=== PATIENT | male | born 1980 | race Caucasian/White ===

== ENCOUNTER 2017-06-28 13:52 | Emergency (ER) | payer MEDICAID ==
[~2017-06-28] VITALS: Ht 180.3 cm; Wt 93.0 kg
[~2017-06-28 13:52] MED LIST: CYCL-1 PO; DIPH25CA83 PO; EPIN0.3P17 SQ; EPIN0.3P3 IM; FAMO40TA73 PO; NO HOME MEDS; POTA20TA19 PO
[2017-06-28 15:03] LABS: BASOPHILS # (AUTO) 0.1 X10'3 (0-0.2); BASOPHILS % (AUTO) 1.1 % (0-1); EOSINOPHILS # (AUTO) 0.4 X10'3 (0-0.9); EOSINOPHILS % (AUTO) 4.4 % (0-6); HEMATOCRIT 42.2 % (42.0-52.0); HEMOGLOBIN 14.3 g/dl (14.0-17.9); LYMPHOCYTES # (AUTO) 2.8 X10'3 (1.1-4.8); LYMPHOCYTES % (AUTO) 34.6 % (21-51); MEAN CORPUSCULAR HEMOGLOBIN 32.2 PG (27.0-31.0); MEAN CORPUSCULAR VOLUME 94.8 FL (78-98); MONOCYTES # (AUTO) 0.5 X10'3 (0-0.9); NEUTROPHILS # (AUTO) 4.3 X10'3 (1.8-7.7); NEUTROPHILS % (AUTO) 53.9 % (42-75); PLATELET COUNT 251 X10'3 (140-440); RED BLOOD COUNT 4.45 X10'6 (4.70-6.10); RED CELL DISTRIBUTION WIDTH 14.6 % (11.5-14.5); WHITE BLOOD COUNT 8.1 X10'3 (4.5-11.0)
[2017-06-28 15:10] LABS: PARTIAL THROMBOPLASTIN TIME 25 SECONDS (22-32); PROTHROMBIN TIME 10.3 SECONDS (9.0-12.0)
[2017-06-28 15:14] LABS: ALANINE AMINOTRANSFERASE 561 U/L (12-78); ALBUMIN 3.6 G/DL (3.4-5.0); ALBUMIN/GLOBULIN RATIO 0.7 (1.1-1.5); ALKALINE PHOSPHATASE 100 IU/L (46-116); ANION GAP 11 (8-16); ASPARTATE AMINO TRANSFERASE 270 U/L (10-37); BILIRUBIN,TOTAL 0.5 MG/DL (0.1-1.0); BLOOD UREA NITROGEN 11 MG/DL (7-18); BUN/CREATININE RATIO 13.8 (5.4-32.0); CALCIUM 9.3 MG/DL (8.5-10.1); CHLORIDE 102 MMOL/L (99-107); GLUCOSE 122 MG/DL (70-104); POTASSIUM 4.3 MMOL/L (3.5-5.1); SODIUM 140 MMOL/L (135-145); TOTAL CARBON DIOXIDE 27.1 MMOL/L (24-32); TOTAL PROTEIN 8.9 G/DL (6.4-8.2); eGFR > 90 ML/MIN
[2017-06-28] MEDS ORDERED: CEPH500C5 PO (15:53)
[2017-06-28 16:04] VITALS: BP 130/66
== END 2017-06-28 16:06 | disposition home or self-care (01) ==
LOC: ER 13:52
DX: L30.9 Dermatitis, unspecified (principal); R60.0 Localized edema; F17.200 Nicotine dependence, unspecified, uncomplicated; Z56.0 Unemployment, unspecified; Z91.013 Allergy to seafood; Z79.899 Other long term (current) drug therapy
CPT/HCPCS: 36415; 80053; 85025; 85610; 85651; 85730; 86140; 99284

== ENCOUNTER 2017-08-10 07:36 | Emergency (ER) | payer MEDICAID ==
[~2017-08-10] VITALS: Ht 180.3 cm; Wt 92.4 kg
[~2017-08-10 07:36] MED LIST changes: +CEPH500C5 PO
[2017-08-10] MEDS ORDERED: normal saline 1000ML IV soln IV ONE (08:10)
[2017-08-10] MEDS ORDERED: LORazepam 2 mg/ml vial IV ONE (08:10)
[2017-08-10 08:32] LABS: BASOPHILS % (AUTO) 0.4 % (0-1); EOSINOPHILS # (AUTO) 0.1 X10'3 (0-0.9); EOSINOPHILS % (AUTO) 1.4 % (0-6); HEMATOCRIT 41.2 % (42.0-52.0); HEMOGLOBIN 14.2 g/dl (14.0-17.9); LYMPHOCYTES # (AUTO) 1.3 X10'3 (1.1-4.8); LYMPHOCYTES % (AUTO) 14.1 % (21-51); MEAN CORPUSCULAR HEMOGLOBIN 32.5 PG (27.0-31.0); MEAN CORPUSCULAR HGB CONC 34.4 % (33.0-36.5); MEAN CORPUSCULAR VOLUME 94.5 FL (78-98); MEAN PLATELET VOLUME 9.2 FL (7.4-10.4); MONOCYTES # (AUTO) 0.6 X10'3 (0-0.9); MONOCYTES % (AUTO) 6.3 % (2-12); NEUTROPHILS # (AUTO) 7.3 X10'3 (1.8-7.7); NEUTROPHILS % (AUTO) 77.8 % (42-75); PLATELET COUNT 162 X10'3 (140-440); RED BLOOD COUNT 4.37 X10'6 (4.70-6.10); RED CELL DISTRIBUTION WIDTH 14.4 % (11.5-14.5); WHITE BLOOD COUNT 9.4 X10'3 (4.5-11.0)
[2017-08-10 08:47] LABS: ALANINE AMINOTRANSFERASE 500 U/L (12-78); ALBUMIN 3.5 G/DL (3.4-5.0); ALBUMIN/GLOBULIN RATIO 0.7 (1.1-1.5); ALKALINE PHOSPHATASE 127 IU/L (46-116); ANION GAP 11 (8-16); ASPARTATE AMINO TRANSFERASE 238 U/L (10-37); BILIRUBIN,TOTAL 0.7 MG/DL (0.1-1.0); BLOOD UREA NITROGEN 10 MG/DL (7-18); CHLORIDE 105 MMOL/L (99-107); CREATININE 0.83 MG/DL (0.60-1.10); GLUCOSE 133 MG/DL (70-104); POTASSIUM 3.6 MMOL/L (3.5-5.1); SODIUM 141 MMOL/L (135-145); TOTAL CARBON DIOXIDE 24.6 MMOL/L (24-32); TOTAL PROTEIN 8.3 G/DL (6.4-8.2); eGFR > 90 ML/MIN
[2017-08-10 09:43] LABS: MONOTEST NEGATIVE (Neg)
[2017-08-10 10:43] VITALS: BP 121/65
== END 2017-08-10 11:30 | disposition home or self-care (01) ==
LOC: ER 07:36
DX: K75.9 Inflammatory liver disease, unspecified (principal); F19.10 Other psychoactive substance abuse, uncomplicated; F17.210 Nicotine dependence, cigarettes, uncomplicated; F12.10 Cannabis abuse, uncomplicated; F15.10 Other stimulant abuse, uncomplicated; Z56.0 Unemployment, unspecified; Z91.013 Allergy to seafood; Z79.899 Other long term (current) drug therapy
CPT/HCPCS: 36415; 71045; 80053; 85025; 86308; 87081; 87880; 93005; 96361; 96374; 99285; J2060; J7030

== ENCOUNTER 2017-10-12 00:03 | Emergency (ER) | payer MEDICAID ==
[~2017-10-12] VITALS: Ht 180.3 cm; Wt 95.5 kg
[2017-10-12] MEDS ORDERED: LORazepam 0.5 MG tablet PO PRN (00:30)
[2017-10-12] MEDS ORDERED: ALBU8.5H8 IH (01:12)
[2017-10-12] MEDS ORDERED: EPIN0.3P8 IM (01:12)
[2017-10-12 01:13] VITALS: BP 132/84
== END 2017-10-12 01:15 | disposition home or self-care (01) ==
LOC: ER 00:04
DX: F41.9 Anxiety disorder, unspecified (principal); R06.02 Shortness of breath; F12.90 Cannabis use, unspecified, uncomplicated; F15.90 Other stimulant use, unspecified, uncomplicated; Z56.0 Unemployment, unspecified
CPT/HCPCS: 71045; 99283

== ENCOUNTER 2018-05-16 15:47 | Emergency (ER) | payer MEDICAID ==
[~2018-05-16] VITALS: Ht 180.3 cm; Wt 91.2 kg
[~2018-05-16 15:47] MED LIST changes: +ALBU8.5H8 IH; +EPIN0.3P8 IM
[2018-05-16 16:16] LABS: BASOPHILS # (AUTO) 0.1 X10'3 (0-0.2); EOSINOPHILS # (AUTO) 0.1 X10'3 (0-0.9); EOSINOPHILS % (AUTO) 1.6 % (0-6); HEMATOCRIT 43.8 % (42.0-52.0); HEMOGLOBIN 14.9 g/dl (14.0-17.9); LYMPHOCYTES # (AUTO) 2.8 X10'3 (1.1-4.8); LYMPHOCYTES % (AUTO) 38.9 % (21-51); MEAN CORPUSCULAR HEMOGLOBIN 32.4 PG (27.0-31.0); MEAN CORPUSCULAR VOLUME 95.4 FL (78-98); MEAN PLATELET VOLUME 8.8 FL (7.4-10.4); MONOCYTES # (AUTO) 0.8 X10'3 (0-0.9); MONOCYTES % (AUTO) 11.8 % (2-12); NEUTROPHILS # (AUTO) 3.4 X10'3 (1.8-7.7); NEUTROPHILS % (AUTO) 46.7 % (42-75); PLATELET COUNT 218 X10'3 (140-440); RED BLOOD COUNT 4.59 X10'6 (4.70-6.10); RED CELL DISTRIBUTION WIDTH 14.4 % (11.5-14.5); WHITE BLOOD COUNT 7.2 X10'3 (4.5-11.0)
[2018-05-16 16:28] VITALS: BP 161/105
[2018-05-16 16:33] LABS: ALANINE AMINOTRANSFERASE 417 U/L (12-78); ALBUMIN 3.8 G/DL (3.4-5.0); ALBUMIN/GLOBULIN RATIO 0.7 (1.1-1.5); ALKALINE PHOSPHATASE 110 IU/L (46-116); AMYLASE 55 U/L (25-115); ANION GAP 12 (8-16); ASPARTATE AMINO TRANSFERASE 298 U/L (10-37); BILIRUBIN,TOTAL 0.6 MG/DL (0.1-1.0); BLOOD UREA NITROGEN 8 MG/DL (7-18); CALCIUM 8.5 MG/DL (8.5-10.1); CHLORIDE 102 MMOL/L (99-107); CREATININE 0.89 MG/DL (0.60-1.10); GLUCOSE 171 MG/DL (70-104); LIPASE 143 U/L (73-393); MAGNESIUM 1.9 MG/DL (1.5-2.4); POTASSIUM 3.6 MMOL/L (3.5-5.1); SODIUM 140 MMOL/L (135-145); TOTAL CARBON DIOXIDE 26.4 MMOL/L (24-32); TOTAL PROTEIN 9.4 G/DL (6.4-8.2); eGFR > 90 ML/MIN
--- NOTE | 2018-05-16 16:53 | NUR ---
DR BUTCHER AT BEDSIDE WITH PT
[2018-05-16] MEDS ORDERED: famotidine 20mg tablet PO ONE (16:55)
[2018-05-16] MEDS ORDERED: pantoprazole 40mg Tablet.DR PO ONE (16:55)
[2018-05-16] MEDS ORDERED: mag hydrox/Alum hydrox/simeth 30ml oral suspension PO ONE (16:55)
[2018-05-16] MEDS ORDERED: ondansetron 4mg rapidly disintigrating tab PO ONE (16:55)
[2018-05-16] MEDS ORDERED: LIDOcaine Viscous 15ml cup PO ONE (16:55)
--- NOTE | 2018-05-16 17:13 | NUR ---
DR BUTCHER AT BEDSIDE RE EVALUATING PT AFTER RECEIVING RX
[2018-05-16] MEDS ORDERED: PANT20TA2 PO (17:17)
[2018-05-16] MEDS ORDERED: EPIN0.3A3 IM (17:17)
== END 2018-05-16 17:25 | disposition home or self-care (01) ==
LOC: ER 15:47
DX: K21.9 Gastro-esophageal reflux disease without esophagitis (principal); R07.89 Other chest pain; K76.9 Liver disease, unspecified; F12.90 Cannabis use, unspecified, uncomplicated; F15.90 Other stimulant use, unspecified, uncomplicated; F10.20 Alcohol dependence, uncomplicated; Z56.0 Unemployment, unspecified; Z91.013 Allergy to seafood; Z79.2 Long term (current) use of antibiotics; Z79.899 Other long term (current) drug therapy; Y90.9 Presence of alcohol in blood, level not specified
CPT/HCPCS: 36415; 71045; 80053; 82150; 83690; 83735; 84145; 84484; 85025; 93005; 99284

== ENCOUNTER 2020-03-14 17:20 | Emergency (ER) | payer MEDICAID ==
[~2020-03-14] VITALS: Ht 172.7 cm; Wt 84.1 kg
[~2020-03-14 17:20] MED LIST changes: -CEPH500C5 PO; +EPIN0.3A3 IM; +PANT20TA2 PO
[2020-03-14 17:23] VITALS: BP 159/91
== END 2020-03-14 18:11 | disposition home or self-care (01) ==
LOC: ER 17:21
DX: S80.811A Abrasion, right lower leg, initial encounter (principal); F41.9 Anxiety disorder, unspecified; F12.10 Cannabis abuse, uncomplicated; F15.10 Other stimulant abuse, uncomplicated; Z56.0 Unemployment, unspecified; Z91.013 Allergy to seafood; Z79.899 Other long term (current) drug therapy; V49.9XXA Car occupant (driver) (passenger) injured in unspecified traffic accident, initial encounter; Y93.89 Activity, other specified; Y92.89 Other specified places as the place of occurrence of the external cause; Y99.8 Other external cause status
CPT/HCPCS: 99281; 99283